=== PATIENT | male | born 1935 | race Caucasian/White ===

== ENCOUNTER 2022-05-25 15:22 | Emergency (ER) | payer OTHER ==
[~2022-05-25] VITALS: Ht 177.8 cm; Wt 79.4 kg
--- NOTE | 2022-05-25 16:04 | NUR ---
Spiritual Care Support Pt. was brought to ED receiving chest compressions. After further attempts to regain a pulse, the Pt. at 15:19. Pts. SO and Pts. son arrived and were met in the consult room. Nurse metrology manager informed family of Pts. passing. SO and Son were brought into see the Pts. body, where a blessing for the Pt. and prayers for the family are given. Dr. Baptiste arrived and consoled the family. Nurse Knife Setter Assembler confirmed that [facility] is the home the family has chosen for services. This marketing reporting analyst stayed with the SO until Pts. son picked her up for the ride home. SO and Pts. son verbalized gratitude for the spiritual care given.
== END 2022-05-25 18:23 ==
LOC: ER 15:22
DX: I46.9 Cardiac arrest, cause unspecified (principal)
CPT/HCPCS: 92950; 99285-25